=== PATIENT | female | born 1985 | race Caucasian/White ===

== ENCOUNTER 2019-11-30 15:28 | Emergency (ER) | payer SELFPAY ==
[~2019-11-30] VITALS: Ht 162.6 cm; Wt 59.1 kg
[~2019-11-30 15:28] MED LIST: ATIVAN 0.50.5 MG/TAB PO; AZO-CRANBERRY450 MG PO; CEPHALEXIN500 M1 PO; EPIPEN 2-PAK1 MG/ML IM; PREDNISONE20 MG PO
[2019-11-30 15:32] VITALS: TEMP 97.4
[2019-11-30 16:01] LABS: BASO % 0.5 % (0.0-2.0); EOS # 0.1 (0.0-0.7); EOS % 0.8 % (0-4.0); GRAN # 4.3 (1.4-6.5); GRAN % 64.6 % (42.2-75.2); HEMOGLOBIN 13.8 g/dl (12.5-16.0); LYMPH # 1.8 (1.2-3.4); LYMPH % 27.7 % (20.0-51.0); MEAN CELL VOLUME 91 fl (80.0-100.0); MEAN CORPUSCULAR HEMOGLOBIN 30 pg (27.0-31.0); MEAN CORPUSCULAR HGB CONC 33 g/dl (33.0-37.0); MEAN PLATELET VOLUME 9.3 fl (7.4-10.4); MONO # 0.4 (0.1-0.6); MONO % 6.1 % (1.7-9.3); PLATELET COUNT 252 K/mm3 (130-400)
[2019-11-30 16:13] LABS: ALANINE AMINOTRANSFERASE 23 U/L (4-34); ALBUMIN 4.8 gm/dL (3.5-5.0); ALKALINE PHOSPHATASE 64 U/L (50-136); ANION GAP 10 mmol/L (7-16); AST,SGOT 31 U/L (15-37); BILIRUBIN,TOTAL 0.7 mg/dL (0.0-1.0); BLOOD UREA NITROGEN 22 mg/dL (7-17); CALCIUM 10.1 mg/dL (8.4-10.2); CARBON DIOXIDE 27 mmol/L (22-30); CHLORIDE 101 mmol/L (98-107); CREATININE, serum 1.02 (0.52-1.25); GLUCOSE 92 mg/dL (74-106); LIPASE 54 U/L (23-300); POTASSIUM 4.1 mmol/L (3.4-5.0); SODIUM 138 mmol/L (137-145); TOTAL PROTEIN 8.6 gm/dL (6.4-8.2)
[2019-11-30 16:14] LABS: C-REACTIVE PROTEIN < 0.5 mg/dL (0.0-0.9)
[2019-11-30 16:17] LABS: COLLECTION METHOD CLEAN CATCH
[2019-11-30 16:24] LABS: PH 7 (5-8); SQUAMOUS EPITHELIAL 0-2 /hpf; URINE APPEARANCE Clear; URINE BACTERIA Rare /hpf; URINE BILIRUBIN Negative (NEGATIVE); URINE BLOOD Negative (NEGATIVE); URINE COLOR Colorless; URINE GLUCOSE Negative (NEGATIVE); URINE KETONE Negative (NEGATIVE); URINE LEUKOCYTE ESTERASE Negative (NEGATIVE); URINE NITRATE Negative (NEGATIVE); URINE PROTEIN(semi-quant) Negative (NEGATIVE); URINE RBC 0-2 /hpf; URINE UROBILINOGEN Negative (NEGATIVE)
[2019-11-30 16:52] LABS: TRICYCLIC ANTIDEPRESS URINE NEGATIVE
[2019-11-30 18:25] VITALS: BP 117/75; PULSE 66
[2019-11-30] MEDS ORDERED: CEPHALEXIN500 M1 PO (18:34)
[2019-11-30] MEDS ORDERED: BACTRIM DS 8001 TAB PO (18:34)
[2019-11-30] MEDS ORDERED: PREDNISONE20 MG PO (21:58)
[2019-11-30] MEDS ORDERED: DOXYCYCLINE 10100 MG PO (21:58)
== END 2019-11-30 18:50 | disposition home or self-care (01) ==
LOC: COL.ER 15:28
PROVIDERS: Emergency Medicine
DX: R10.31 Right lower quadrant pain (principal); L98.9 Disorder of the skin and subcutaneous tissue, unspecified; R51 Headache
CPT/HCPCS: J2405; J3010; J7030; Q9967

== ENCOUNTER 2019-11-30 20:40 | Emergency (ER) | payer SELFPAY ==
[~2019-11-30] VITALS: Ht 162.6 cm; Wt 59.1 kg
[~2019-11-30 20:40] MED LIST changes: +BACTRIM DS 8001 TAB PO
[2019-11-30 20:45] VITALS: TEMP 98.5
[2019-11-30] MEDS ORDERED: DOXYCYCLINE 10100 MG PO (21:58)
[2019-11-30] MEDS ORDERED: PREDNISONE20 MG PO (21:58)
[2019-11-30 22:40] VITALS: BP 117/78; PULSE 74
== END 2019-11-30 22:41 | disposition home or self-care (01) ==
LOC: COL.ER 20:40
DX: T50.905A Adverse effect of unspecified drugs, medicaments and biological substances, initial encounter (principal); F17.210 Nicotine dependence, cigarettes, uncomplicated
CPT/HCPCS: J7030; J7512

== ENCOUNTER 2020-11-22 19:54 | Emergency (ER) | payer SELFPAY ==
[~2020-11-22] VITALS: Ht 162.6 cm; Wt 59.1 kg
[~2020-11-22 19:54] MED LIST changes: +DOXYCYCLINE 10100 MG PO
[2020-11-22] MEDS ORDERED: PEPCID 20MG TAB20 MG PO (20:43)
[2020-11-22] MEDS ORDERED: BENADRYL25 M2 PO (20:43)
[2020-11-22] MEDS ORDERED: SPORANOX100 MG PO (20:43)
[2020-11-22 21:14] VITALS: BP 126/79; PULSE 72; TEMP 98.4
== END 2020-11-22 21:18 | disposition home or self-care (01) ==
LOC: COL.ER 19:54
DX: L08.9 Local infection of the skin and subcutaneous tissue, unspecified (principal)
CPT/HCPCS: J7512

== ENCOUNTER 2021-01-20 12:17 | Emergency (ER) | payer SELFPAY ==
[~2021-01-20] VITALS: Ht 162.6 cm; Wt 59.1 kg
[~2021-01-20 12:17] MED LIST changes: +BENADRYL25 M2 PO; +PEPCID 20MG TAB20 MG PO; +SPORANOX100 MG PO
[2021-01-20 13:30] LABS: COLLECTION METHOD CLEAN CATCH
[2021-01-20 13:36] LABS: MUCOUS Present /lpf; PH 6 (5-8); SQUAMOUS EPITHELIAL 0-2 /hpf; URINE APPEARANCE Clear; URINE BACTERIA None Seen /hpf; URINE BILIRUBIN Negative (NEGATIVE); URINE BLOOD 1+ (NEGATIVE); URINE COLOR Yellow; URINE GLUCOSE Negative (NEGATIVE); URINE KETONE Negative (NEGATIVE); URINE LEUKOCYTE ESTERASE Negative (NEGATIVE); URINE NITRATE Negative (NEGATIVE); URINE PROTEIN(semi-quant) Negative (NEGATIVE); URINE RBC 0-2 /hpf; URINE UROBILINOGEN Negative (NEGATIVE)
[2021-01-20 13:42] LABS: BASO % 0.6 % (0.0-2.0); EOS # 0.1 (0.0-0.7); EOS % 1.6 % (0-4.0); GRAN # 2.7 (1.4-6.5); GRAN % 55.4 % (42.2-75.2); HEMATOCRIT 38.2 % (37.0-47.0); HEMOGLOBIN 12.3 g/dl (12.5-16.0); LYMPH # 1.6 (1.2-3.4); MEAN CELL VOLUME 96 fl (80.0-100.0); MEAN CORPUSCULAR HEMOGLOBIN 31 pg (27.0-31.0); MEAN CORPUSCULAR HGB CONC 32 g/dl (33.0-37.0); MEAN PLATELET VOLUME 9.2 fl (7.4-10.4); MONO # 0.4 (0.1-0.6); PLATELET COUNT 214 K/mm3 (130-400); RED BLOOD COUNT 3.97 M/mm3 (4.10-5.30); REDCELL DISTRIBUTION WIDTH-CV 12.6 % (11.5-14.5)
[2021-01-20 14:18] LABS: ALBUMIN 4.1 gm/dL (3.5-5.0); BILIRUBIN,TOTAL 0.3 mg/dL (0.0-1.0); CALCIUM 8.9 mg/dL (8.4-10.2); CREATININE, serum 0.93 (0.52-1.25); POTASSIUM 3.6 mmol/L (3.4-5.0); TOTAL PROTEIN 6.9 gm/dL (6.4-8.2)
[2021-01-20 15:00] VITALS: BP 116/84; PULSE 67; TEMP 97.2
== END 2021-01-20 15:00 | disposition home or self-care (01) ==
LOC: COL.ER 12:17
PROVIDERS: Student in an Organized Health Care Education/Training Program
DX: R10.11 Right upper quadrant pain (principal); F17.210 Nicotine dependence, cigarettes, uncomplicated; Z32.02 Encounter for pregnancy test, result negative; Z90.5 Acquired absence of kidney
CPT/HCPCS: J2270; J2405; J7030

== ENCOUNTER 2023-06-08 08:58 | Emergency (ER) | payer SELFPAY ==
[~2023-06-08] VITALS: Ht 162.6 cm; Wt 59.1 kg
[2023-06-08 09:09] VITALS: TEMP 98.3
[2023-06-08 09:51] LABS: COLLECTION METHOD CLEAN CATCH
[2023-06-08 09:54] LABS: BASO % 0.6 % (0.0-2.0); EOS # 0.1 K/mm3 (0.0-0.7); EOS % 0.7 % (0.0-4.0); GRAN # 4.6 K/mm3 (1.4-6.5); GRAN % 68.1 % (42.2-75.2); HEMATOCRIT 38.9 % (37.0-47.0); HEMOGLOBIN 12.8 g/dl (12.5-16.0); LYMPH # 1.7 K/mm3 (1.2-3.4); LYMPH % 24.3 % (20.0-51.0); MEAN CELL VOLUME 91 fl (80.0-100.0); MEAN CORPUSCULAR HEMOGLOBIN 30 pg (27-31); MEAN CORPUSCULAR HGB CONC 33 g/dl (33.0-37.0); MEAN PLATELET VOLUME 9.4 fl (7.4-10.4); MONO # 0.4 K/mm3 (0.1-0.6); PLATELET COUNT 258 K/mm3 (130-400); RED BLOOD COUNT 4.26 M/mm3 (4.10-5.30); REDCELL DISTRIBUTION WIDTH-CV 12.6 % (11.5-14.5)
[2023-06-08 10:04] LABS: ALBUMIN 4.3 gm/dL (3.5-5.0); BILIRUBIN,TOTAL 0.4 mg/dL (0.2-1.2); CALCIUM 9.7 mg/dL (8.4-10.2); CREATININE, serum 1.02 mg/dL (0.57-1.11); POTASSIUM 3.8 mmol/L (3.5-4.5); TOTAL PROTEIN 7.4 gm/dL (6.2-8.1)
[2023-06-08 10:12] LABS: URINE COLOR Red (YELLOW)
[2023-06-08 10:13] LABS: SQUAMOUS EPITHELIAL 0-2 /hpf (0-10); URINE APPEARANCE Turbid (CLEAR/HAZY); URINE BLOOD 3+ (NEGATIVE); URINE GLUCOSE Negative (NEGATIVE); URINE KETONE Negative (NEGATIVE); URINE NITRATE Negative (NEGATIVE); URINE PROTEIN(semi-quant) 2+ (NEGATIVE); URINE RBC >50 /hpf (0-2); URINE UROBILINOGEN 0.2 E.U/dL (0.2-1.0)
[2023-06-08 10:14] LABS: URINE BACTERIA None Seen /hpf (NONE SEEN)
[2023-06-08] MEDS ORDERED: CEPHALEXIN500 M1 PO (11:57)
[2023-06-08 11:58] VITALS: BP 134/76; PULSE 73
[2023-06-11] MEDS ORDERED: CIPRO 500MG TA500 MG PO (08:49)
== END 2023-06-08 12:04 | disposition home or self-care (01) ==
LOC: COL.ER 08:58
PROVIDERS: Personal Emergency Response Attendant
DX: N30.91 Cystitis, unspecified with hematuria (principal); Q60.0 Renal agenesis, unilateral
CPT/HCPCS: J0696